=== PATIENT | female | born 1955 | race Caucasian/White ===

== ENCOUNTER 2024-04-06 12:24 | Outpatient (CLI) | payer MEDICARE, SELFPAY ==
--- NOTE | ~2024-04-06 | US_ITS ---
EXAMINATION: US FNA w image guidance DATE: 04/06/2024 13:33 INDICATION: Left thyroid nodule. TECHNIQUE: The procedure and its benefits and risks were discussed with the patient. Risks specifically discusse d included bleeding. The patient verbalized understanding of the risks and agreed to proceed. The nec k was prepped and draped in the usual sterile manner. 1% lidocaine was used for local anesthesia. 7 passes were made with a 25G needle into the lesion under ultrasound guidance. There were no immedia te complications. FINDINGS: Grayscale ultrasound images demonstrate needles advanced into a 15 mm nodule in left thyroid lobe for biopsy. IMPRESSION: 1. Ultrasound-guided fine needle aspiration of a left thyroid nodule. Reviewed, dictated and finalized at location A. ADJUSTER
--- OUTSIDE RECORDS SUMMARY | 2024-04-06 13:32 | XMS_ITS | Referral Summary ---
Author Organization [facility] Address [address] [place] [address] Care Team Providers Care Founding Partner Name Role Phone Joelle Mercer MD Primary Care Provider [phone] Allergies No known active allergies Medications glipiZIDE XL (GLUCOTROL XL) 5 mg 24 hr tabletIndication s:type 2 diabetes mellitus Take 1 tablet (5 mg total) by mouth daily 30 tablet 08/24/2021 Active Active Problems No known active problems Social History Tobacco Use Types Packs/Day Years Used Date Smoking Tobacco: Never Assessed Tobacco Cessation:Counseling Given: Not Answered Personal Safety Answer Date Recorded Have you ever been in or are you currently in a harmful physical or emotional relationship or is someone making you feel afraid or unsafe? 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 Gender Identity Not on file Sexual Orientation Not on file Last Filed Vital Signs Vital Sign Reading Time Taken Comments Blood Pressure 172/77 07/15/2022 8:32 PM CDT Pulse 75 07/15/2022 8:32 PM CDT Temperature 36.4 ??C (97.6 ??F) 07/15/2022 8:32 PM CD T Respiratory Rate 16 07/15/2022 8:32 PM CDT Oxygen Saturation 97% 07/15/2022 8:32 PM CDT Inhaled Oxygen Concentration - - Weight 89 kg (196 lb 3.4 oz) 07/15/2022 8:32 PM CDT Height 167.6 cm (5' 6 ) 08/24/2021 7:56 PM CDT Body Mass Index 31.67 08/24/2021 7:56 PM CDT Plan of Treatment Not on file Insurance [facility] Care Teams Founding Partner Relationship Specialty Start Date End Date Joelle Mercer MD [address] [place] [address] PCP - General Family Practice 08/24/21
--- OUTSIDE RECORDS SUMMARY | 2024-04-06 13:32 | XMS_ITS | Clinical Summary ---
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 Gender Identity Not on file Sexual Orientation Not on file Obstetrics History Last Filed Vital Signs Vital Sign Reading [...] 08/24/2021 7:56 PM CDT Plan of Treatment Health Maintenance Due Date Last Done Comments Breast Cancer Screening-Mammogram 1957 Colon Cancer Screening-Colonoscopy 1955 Depression Screening 1957 Fall Risk Assessment 1955 Hepatitis C Screening 1957 Osteoporosis Screening-Bone Density Scan 1957 DTaP/Tdap/Td Vaccine (1 - Tdap) 1968 Hepatitis B Screening 10/04/1975 Zoster Vaccine (1 of 2) 10/04/2007 Pneumococcal vaccine 65+ (1 of 1 - PCV) 2022 Well Visit 65+ 2022 Influenza Vaccine (#1) 2023 Insurance [facility] Member Subscriber Plan / Payer (Ef fective 2022-Present) Name:Iona Thompson Relation to Subscriber:Self Name:Iona Thompson Payer ID:[id number] (NAIC) Group ID:Not on file Type:[employer] Address: [facility] [address] [place] [address] Care Teams Relief Salesperson Relationship Specialty Start Date End Date Joelle Mercer MD [address] [place] [address] PCP - General Family Practice 08/24/21
== END 2024-04-06 12:25 | disposition home or self-care (01) ==
PROVIDERS: Visit Provider Internal Medicine
DX: E11.69 Type 2 diabetes mellitus with other specified complication (principal); E78.5 Hyperlipidemia, unspecified; I10 Essential (primary) hypertension; E04.1 Nontoxic single thyroid nodule; Z71.3 Dietary counseling and surveillance
CPT/HCPCS: 10005; 88172; 88173; 88177; 88305